=== PATIENT | male | born 1955 | race Caucasian/White ===

== ENCOUNTER 2016-10-02 06:43 | Day surgery (SDC) | payer OTHER ==
[~2016-10-02 06:43] MED LIST: ACETAMINOPHEN 1000MG/100 ML PREMIX IV ONE
[2016-10-02] MEDS ORDERED: BUPIVACAINE 0.25% W/EPI MPF 30ML VIAL IVP ONE (13:34)
[2016-10-02] MEDS ORDERED: DESFLURANE 240 ML BTL INH ONE (13:37)
[2016-10-02] MEDS ORDERED: MIDAZOLAM HCL 2MG/2ML VIAL IV ONE (13:37)
[2016-10-02] MEDS ORDERED: PROPOFOL 10 MG/ML VIAL IV ONE (13:37)
[2016-10-02] MEDS ORDERED: LIDOCAINE 2% MDV (20MG/ML) 20ML VIAL IV ONE (13:37)
[2016-10-02] MEDS ORDERED: HYDROMORPHONE HCL 2 MG/ML VIAL IV ONE (13:37)
--- NOTE | 2016-10-02 16:42 | Operative Note ---
DATE OF SURGERY: 10/02/16 SURGEON: STEPHEN LUNA D.O. REFERRING PHYSICIAN: ALLEN TAVERA M.D. PREOPERATIVE DIAGNOSES: 1. TORN MEDIAL MENISCUS OF THE RIGHT KNEE. 2. SYNOVITIS, RIGHT KNEE. POSTOPERATIVE DIAGNOSES: 1. TORN MEDIAL AND LATERAL MENISCUS, RIGHT KNEE. 2. SYNOVITIS, RIGHT KNEE (TWO COMPARTMENTS). OPERATIVE PROCEDURE: 1. ARTHROSCOPIC PARTIAL MEDIAL AND LATERAL MENISCECTOMY, RIGHT KNEE. 2. ARTHROSCOPIC PARTIAL SYNOVECTOMY, RIGHT KNEE (TWO COMPARTMENTS). 3. ARTHROSCOPIC CHONDROPLASTY, BILATERAL FEMORAL CONDYLE, LATERAL TIBIAL PLATEAU , AND PATELLA, LEFT KNEE. DESCRIPTION: This 61-year-old male was taken to the Operating Room and placed in the supine position on the operating room table. A general anesthetic was administered and the right lower extremity was elevated. It was exsanguinated and the tourniquet was inflated to 300 mmHg. Arthroscopic knee-kim applied. The right knee was prepped with Hibiclens and draped in the usual sterile fashion. An inferior lateral portal was established for the 4 mm arthroscope. 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 Synovitis was present in the suprapatellar pouch and patellofemoral joint and partial synovectomy was performed and chondroplasty also performed to the inferior medial portal. I then directed our attention to the medial compartment and a severe complex tear of the posterior horn of the medial meniscus was present, both horizontal, cleavage, and flap-type tears were present. Utilizing the basket forceps and rotating shaver, resection of the unstable fragments of the medial meniscus was performed and it was then reprobed and confirmed to be stable. Some minimal degenerative change of the tibial plateau was present but it was not further disturbed. The intercondylar notch was examined and found to be normal. The lateral compartment was entered and a tear of the lateral meniscus was also present, small flap tears were present, and the rotating shaver was used to perform a partial lateral meniscectomy. Basket forceps were used to further smooth, trim, and balance the meniscus. It was reprobed and confirmed to be stable. There was grade 2 chondromalacia of the entire weightbearing surface of the lateral tibial plateau as well as the lateral femoral condyle. The wound was then copiously irrigated. Partial synovectomy of the anterior, lateral, and medial compartments were also performed to remove the inflammatory synovium. The wound was suctioned. All areas were re-examined and no additional findings were present and the instruments were removed. The portal was infiltrated with 0.25% Marcaine with Epinephrine, sterile dressings were applied, tourniquet and knee-kim released, and the patient was taken to the Recovery Room in satisfactory condition. GROSS PATHOLOGY: There were complex tears of the posterior horn of the medial meniscus with smaller flap tears of the lateral meniscus. Grade 2 chondromalacia of the patella, medial femoral condyle, lateral femoral condyle, and lateral tibial plateau as described above. Stephen Luna D.O. Date & Time cc: Allen Tavera M.D. JOB NUMBER: [id number] MTDD
== END 2016-10-02 10:40 | disposition home or self-care (01) ==
LOC: SUR 06:43
PROVIDERS: ATTEND Orthopaedic Surgery
DX: S83.241A Other tear of medial meniscus, current injury, right knee, initial encounter (principal); M65.861 Other synovitis and tenosynovitis, right lower leg; S83.281A Other tear of lateral meniscus, current injury, right knee, initial encounter; I10 Essential (primary) hypertension
CPT/HCPCS: 29880; 29876; 29879; 01400; 93005; 93010; J1170